=== PATIENT | female | born 1975 | race Caucasian/White ===

== ENCOUNTER 2016-05-19 21:41 | Emergency (ER) | payer MEDICAID ==
[2016-05-19 22:46] VITALS: BP 154/91
== END 2016-05-19 22:46 | disposition home or self-care (01) ==
LOC: ED 21:41
DX: J02.9 Acute pharyngitis, unspecified (principal); M25.561 Pain in right knee; M25.562 Pain in left knee
CPT/HCPCS: J0561

== ENCOUNTER 2018-02-08 06:42 | Emergency (ER) | payer MEDICAID ==
[~2018-02-08] VITALS: Ht 160 cm; Wt 118.8 kg
[2018-02-08 06:49] VITALS: Ht 160 cm; Wt 118.8 kg
[2018-02-08 08:41] VITALS: BP 133/96
== END 2018-02-08 08:44 | disposition home or self-care (01) ==
LOC: ED 06:42
DX: J06.9 Acute upper respiratory infection, unspecified (principal)
CPT/HCPCS: 87804; Q0092; Q0162

== ENCOUNTER 2020-04-18 22:38 | Emergency (ER) | payer MEDICAID ==
[~2020-04-18] VITALS: Ht 160 cm; Wt 129.3 kg
[2020-04-18 22:47] VITALS: Ht 160 cm; Wt 129.3 kg
[2020-04-19 00:27] LABS: BASOPHIL % 0.7 % (0.2-1.3); PLATELET COUNT 275 x10^3mcL (179-408)
[2020-04-19] MEDS ORDERED: DIFLUCAN150 MG PO (00:33)
[2020-04-19] MEDS ORDERED: GOOD NEIGHBOR PHAR2% VG (00:33)
[2020-04-19 00:39] LABS: CALCIUM 8.7 mg/dL (8.5-10.1); CARBON DIOXIDE 27.9 mmol/L (21-32); CHLORIDE SERUM 101 mmol/L (98-107); CREATININE SERUM 0.9 mg/dL (0.6-1.0); GFR1 > 60 mL/min; GLUCOSE SERUM 194 mg/dL (74-106); POTASSIUM SERUM 3.5 mmol/L (3.5-5.1); SODIUM SERUM 137 mmol/L (136-145)
[2020-04-19 00:44] LABS: ALBUMIN 3.2 g/dL (3.4-5.0); ALKALINE PHOSPHATASE 74 U/L (46-116); ALT/SGPT 38 U/L (14-59); AST/SGOT 16 U/L (15-37); BILIRUBIN TOTAL 0.2 mg/dL (0.20-1.00); CHOLESTEROL 180 mg/dL (<200); CHOLESTEROL/HDL RATIO 3.8; HDL CHOLESTEROL 47 mg/dL (40-60); LIPASE 107 IU/L (73-393); RED CELL DISTRIBUTION WIDTH 16.8 % (12.3-17.7); TOTAL PROTEIN, SERUM 7.3 g/dL (6.4-8.2); TRIGLYCERIDES 199 mg/dL (<150)
[2020-04-19 00:48] LABS: microscopic required? NO
[2020-04-19 00:54] LABS: FREE T4 1.06 ng/dL (0.76-1.46); FREE THYROXINE INDEX 2.6 ug/dL (1.4-4.5); T4(THYROXINE) 8.3 ug/dL (4.7-13.3)
[2020-04-19 00:59] LABS: UA SPECIFIC GRAVITY >=1.030 (1.005-1.035); urine erythrocyte NEGATIVE (NEGATIVE)
[2020-04-19 01:18] LABS: T3 TOTAL 1.59 ng/mL
[2020-04-19 04:45] VITALS: BP 120/66
[2020-04-19] MEDS ORDERED: MOT800 PO (04:49)
[2020-04-19] MEDS ORDERED: OXYCODONE HCL5 MG PO (04:49)
== END 2020-04-19 05:15 | disposition home or self-care (01) ==
LOC: ED 22:38
PROVIDERS: Specialist
DX: M25.562 Pain in left knee (principal); M25.561 Pain in right knee; E66.01 Morbid (severe) obesity due to excess calories; R60.9 Edema, unspecified
CPT/HCPCS: 83880; 84439; J1885; J3010; Q9967